=== PATIENT | female | born 1935 | race Caucasian/White ===

== ENCOUNTER 2023-07-14 22:34 | Inpatient (IN) | payer MEDICARE, OTHER, SELFPAY ==
[2023-07-14] VITALS (15 sets, daily range): BP systolic 84–143; BP diastolic 41–65; BMI 24.6
[2023-07-14 19:44] LABS: Glucose - Point of Care 130 mg/dl (70-99)
--- NOTE | 2023-07-14 19:56 | ED.CVA ---
History of Present Illness
General
Chief Complaint: CVA/TIA Symptoms
Source: patient
Exam Limitations: none
Time Seen by Provider: 07/14/23 19:51
Nursing documentation reviewed up to this point in time: agreed with
Onset of Stroke Symptoms
Onset of symptoms known: Yes
Date of onset of symptoms: 07/14/23
Time of onset of symptoms: 18:30
Time pt last seen normal is known: Yes
Date last time pt seen normal: 07/14/23
Time last time pt seen normal: 17:00
Travel History
Have you had any contact with someone who has COVID-19?: No
Do you have any symptoms of coronavirus? Fever > 100 degrees, chills, cough, shortness of breath, sore throat, loss of taste or smell, muscle aches, or headache?: No
History of Present Illness
History of Present Illness:
88-year-old female presents emergency department due to difficulty speaking at 6:30 PM tonight. states she took a nap at 5 PM, when she woke up at 630 she was having difficulty speaking.
Past History
Past History
ED Past Medical History: Hypothyroidism and Other (Hypertension, hypothyroidism, cirrhosis, hep C.)
ED Past Surgical History: Gynecological
Social History
Tobacco: Non-smoker
Alcohol: None
Drug: None
Personal:
Family History
Family History: CAD
Review of Systems
Review of Systems
Allergies reviewed?: Yes
All Other Systems: Not applicable
Constitutional: Reports no symptoms
EENT: Reports no symptoms
Respiratory: Reports no symptoms
Cardiac: Reports no symptoms
ABD/GI: Reports no symptoms
: Reports no symptoms
Musculoskeletal: Reports no symptoms
Skin: Reports no symptoms
Neurological: Reports other (difficulty speaking)
Endocrine: Reports no symptoms
Hematologic/Lymphatic: Reports no symptoms
Psychiatric: Reports no symptoms
Phy Exam
Physical Exam
Physical Exam:
Physical Exam
General: Hypotensive, 84/65
Neck: supple. no meningeal signs. normal posterior pharynx
Heart: s1/s2 regular rate and rhythm, no murmur. equal radial
pulses.
HEENT: Pupils equal round reactive to light, EOMI
Lungs: no acute respiratory distress. clear bilaterally
Abdomen: normal bowel sounds. not tender. no CVAT, rectal exam: guaiac positive brown stool
Neuro: alert and oriented to person. no focal neurological deficits cranial nerves II through XII intact
Skin: no rash
Psychiatric: well kept. interactive and cooperative
Extremities: no edema. no calf tenderness. negative homans. good distal pulses
Scores
NIH Stroke Score
Level of Consciousness: 0 - Alert
LOC Questions: 1-Answers one correctly
LOC Commands: 0-Performs both correctly
Best Horizontal Gaze: 0-Normal
Visual [place]: 0=Normal, no visual loss
Facial Palsy: 0=Normal, symmetrical
Motor - Right Arm: 0=No drift 10 seconds
Motor - Left Arm: 0=No drift 10 seconds
Motor - Right Le-No drift 5 seconds
Motor - Left Le-No drift 5 seconds
Limb Ataxia: 0-Absent
Sensation: 0-Normal
Best Language: 0-No aphasia
Dysarthria: 0-Normal
Extinction and Inattention: 0-No abnormality
Total Score:: 1
Course
Orders/Labs/Results
Orders:
Orders
07/14/23 19:45
EKG [Electrocardiogram (*1)] Urgent
Reason for Study: Tachycardia
07/14/23 19:46
EKG- Treatment ONCE
07/14/23 19:50
CT Head W/o Cont STROKE ALERT Urgent
Comment:
Reason For Exam: CVA symptoms
07/14/23 19:54
Complete Blood Count/With Diff Urgent
Comprehensive Metabolic Panel Urgent
PTT Urgent
Prothrombin Time Urgent
Troponin I Urgent
07/14/23 19:57
Straight cath- Treatment ONCE
07/14/23 20:11
Urinalysis Reflex To Culture Urgent
Date Specimen was Collected: 07/14/23
Time Specimen was Collected: 19:47
Urine Microscopic Reflex Cult Urgent
Urine Culture Urgent
NAYA Source: U
Specimen Description:
Date Specimen was Collected: 07/14/23
Time Specimen was Collected: 19:47
07/14/23 20:41
Femur, Left 2 View [CR Femur - Left Min 2 Vw] Urgent
Comment:
Reason For Exam: left hip/thigh pain, fall today
Hip, Left 2-3 Views [CR Hip - LT w/wo Pel 2-3 Vw*] Urgent
Comment:
Reason For Exam: left hip/thigh pain, fall today
Include a pelvis x-ray?: Yes
07/14/23 20:46
Type+Screen Urgent
07/14/23 22:00
Urine Culture Urgent
NAYA Source: Urine
Specimen Description:
0.9% Sodium Chloride 1000 ml [Nss] 1,000 ml IV 80 mls/hr
07/14/23 22:04
CefTRIAXone [Rocephin] 1,000 mg IV NOW STA
Sterile Water [Sterile Water For Injection] 10 ml IV NOW STA
07/14/23 22:05
Admit/Transfer Patient As Directed
Co-Sign Provider:
Level of Care: Inpatient admission
Assign to:: Medical/Surgical
Physician / Group: vinnie au
Diagnosis: anemia heme +stool,doug/ckd dehydration, hypotension
Reason for Hospitalization: anemia heme +stool,doug/ckd dehydration, hypotension
Expected length of stay greater than two midnights?: Yes
ELOS- Estimated Length of Stay in days: 3
I certify the patient meets the requirements for IP care: Yes
07/14/23 22:07
Code Status As Directed
Resuscitation Status: Do not resuscitate
Reached after discussion with pt or family/Healthcare POA: Yes
Based on pt advanced directive or healthcare POA form: Yes
Decision communicated with: per devang
07/14/23 22:08
DNR Bracelet Application ONCE
07/14/23 22:37
COVID-19 Antigen Urgent
Source: Nasal Swab
07/14/23 23:00
Flush (0.9% Sodium Chloride) [Flush (Nss)] See Dose Instructions IV PER PROTOCOL
07/15/23 08:00
0.9% Sodium Chloride [Nss (Preservative Free)] 10 ml IV BID
Pantoprazole [Protonix IV] 40 mg IV BID
Pantoprazole [Protonix IV] 40 mg IV DAILY
Abnormal Lab Results
07/14/23 07/14/23 07/14/23
19:41 19:54 20:11
RBC 2.26 L 10^6/uL
(4.20-5.40)
Hgb 7.6 L g/dL
(12.0-16.0)
Hct 22.0 L %
(37.0-47.0)
MCH 33.6 H pg
(27.0-31.0)
RDW 16.4 H %
(11.5-14.5)
Plt Count 40 L 10^3/uL
(130-400)
Absolute Lymphs (auto) 0.7 L 10^3/uL
(1.2-3.4)
Immature Gran % 0.7 H %
(0-0.5)
Lymphocytes % 12.7 L %
(20.5-51.1)
Monocytes % 9.8 H %
(1.7-9.3)
PT 16.5 H Sec
(11.4-14.6)
APTT 64.7 H Sec
(23.4-35.0)
Sodium 130 L mmol/L
(135-145)
BUN 28 H mg/dl
(7-17)
Creatinine 1.5 H mg/dL
(0.6-1.0)
Glucose 112 H mg/dl
(70-99)
Total Protein 5.8 L g/dl
(6.3-8.2)
Albumin 2.7 L g/dl
(3.5-5.0)
Urine Bilirubin 1+ A
(Negative)
Urine Urobilinogen 3+ A
(Neg - 1+)
Leukocyte Esterase Rfl 1+ A
(Negative)
Urine Bacteria (Reflex) Moderate A
(Negative)
POC Glucose 130 H mg/dl
(70-99)
07/14/23 19:54
07/14/23 19:54
Vital Signs
Initial and Last Documented VS:
Initial Vital Signs
Pulse Resp BP Pulse Ox
63 18 99/45 100
07/14/23 19:35 07/14/23 19:35 07/14/23 19:35 07/14/23 19:35
Last Documented Vital Signs
Pulse Resp BP Pulse Ox
73 25 143/55 99
07/14/23 23:45 07/14/23 23:45 07/14/23 23:00 07/14/23 23:45
MDM/Problems Addressed
Differential Diagnosis Includes:
GI bleed, hyponatremia, CVA, UTI, intracranial hemorrhage, left hip fracture
MDM/Problems Addressed:
88-year-old female with anemia, guaiac positive stool, episodic altered mental status, thrombocytopenia, left hip contusion, fall, hyponatremia-mild, acute kidney injury, anemia. Stroke alert called initially, do not suspect CVA, suspect
hypotension was cause of patient's incoherent speech. At this time patient is not a candidate for TNK based on resolution of symptoms, thrombocytopenia and anemia, GI bleed.
Chronic conditions affecting care: Neurological disorder (Prior encephalitis) and Other (Cirrhosis, hepatitis C)
Acute Exacerbation and/or Progression of Chronic Illness: Neurological disorder (Prior encephalitis and dementia)
*Radiology
Radiology exam reviewed: preliminary read by ED provider (Left hip and femur x-ray no signs of fracture) and radiology read reviewed (CT head no acute findings)
*Pulse Oximetry
Patient hypoxic: no
*EKG
Interpreted by ED Provider?: Yes
EKG Intrepretation Date: 07/14/23
EKG Intrepretation Time: 19:48
Interpretation: normal
Comparison EKG: no comparison EKG present
Heart Rate: 68
Rate: normal
Rhythm: sinus
[place]: normal axis
Interval: normal interval
QRS Pattern: normal QRS
Ischemia: no ischemia
*Wafer Substrate Tester Interpretation
Rate: normal
Interpretation: normal
Heart Rate: 67
Rhythm: sinus
*Critical Care Note
Total Time (30-74mins, 75-104mins- exclusive of procedures): Not Applicable
Data Reviewed
Review of Other/Old Records Reveals: Discharge Summary (Recent discharge 06/06/2023 for right leg cellulitis, dementia, toxic metabolic encephalopathy, sepsis, acute on chronic transaminitis, acute on chronic hyponatremia)
Source: records
Patient Management
Social determinants of health affecting care: Living situation and Strong social support
Discussion with other providers: Hospitalist
Escalation/DeEscalation of care consider admission/obs:
Admit indicated
ED Attending Note
-
Portions of this chart may have been created with voice recognition software.� Occasional wrong word or��sound alike� substitutions may have occurred due to the inherent limitations of voice recognition software.
Discharge Plan
Departure
Patient Disposition: Admit
Date of Disposition: 07/14/23
Time of Disposition: 21:17
Admit to: IMU
Presentation/result/management discussed w/ accepting MD/DO: Hospitalist
Patient with high blood pressure during this ER visit?: No
Condition: Fair
Discharge Problem:
Acute alteration in mental status, Hyponatremia, Acute hypotension, GI bleed, Acute renal failure, Anemia, Fall, Contusion of left hip and thigh
Interventions
Interventions:
*Risk Screen - Suicide Last Done: 07/14/23 19:48
*General Assessment Last Done: 07/14/23 19:35
*Neglect/Abuse Screening Last Done: 07/14/23 19:35
ED- Fall Risk Assessment Last Done: 07/14/23 19:49
*ED COVID-19 Vaccine History Last Done: 07/14/23 19:48
*Nursing Disposition Last Done: 07/14/23 23:58
ED- Pulmonary Assessment Last Done: 07/14/23 20:05
ED- Neurological Assessment Last Done: 07/14/23 20:05
ED- Cardiac Assessment Last Done: 07/14/23 20:05
Discharge Date and Time
Discharge Date/Time: 07/14/23 23:59
[2023-07-14 20:03] LABS: % Basophils 0.6 % (0-2); % Eosinophils 1.5 % (0-6); % Immature Granulocytes 0.7 % (0-0.5); % Lymphocytes 12.7 % (20.5-51.1); % Monocytes 9.8 % (1.7-9.3); % Neutrophils 74.7 % (42.2-75.2); Absolute Eosinophils 0.1 10^3/uL (0-0.7); Absolute Lymphocytes 0.7 10^3/uL (1.2-3.4); Absolute Monocytes 0.5 10^3/uL (0.1-0.6); Absolute Neutrophils 4.1 10^3/uL (1.4-6.5); Hemoglobin 7.6 g/dL (12.0-16.0); Mean Corp Hgb Conc. 34.5 g/dL (33.0-37.0); Mean Corpuscular Hgb 33.6 pg (27.0-31.0); Mean Corpuscular Volume 97.3 fL (81.0-99.0); Mean Platelet Volume 9.8 fL (7.4-10.4); Nucleated Red Blood Cells % 0 %; Platelet Count 40 10^3/uL (130-400); Red Blood Cell Count 2.26 10^6/uL (4.20-5.40); Red Cell Dist. Width 16.4 % (11.5-14.5); White Blood Cell Count 5.4 10^3/uL (4.8-10.8)
[2023-07-14 20:10] LABS: INR 1.33; PT 16.5 Sec (11.4-14.6)
[2023-07-14 20:12] LABS: APTT 64.7 Sec (23.4-35.0)
[2023-07-14 20:20] LABS: ALT (SGPT) 18 U/L (0-35); AST (SGOT) 36 U/L (14-36); Albumin 2.7 g/dl (3.5-5.0); Alkaline Phosphatase 95 U/L (38-126); Blood Urea Nitrogen 28 mg/dl (7-17); Calcium 8.6 mg/dl (8.4-10.2); Carbon Dioxide 25 mmol/L (22-30); Chloride 99 mmol/L (98-107); Estimated Creatinine Clearance 21 ml/min; Glucose 112 mg/dl (70-99); Potassium 4.7 mmol/L (3.5-5.1); Sodium 130 mmol/L (135-145); Total Protein 5.8 g/dl (6.3-8.2); eGFR 33.73
[2023-07-14 20:23] LABS: Troponin I < 0.012 ng/ml
[2023-07-14 20:30] LABS: Urine Albumin Trace (Neg - Trace); Urine Bilirubin 1+ (Negative); Urine Character Clear (Clear); Urine Color Yellow; Urine Glucose Negative (Negative); Urine Ketone Negative (Negative); Urine Leukocyte 1+ (Negative); Urine Nitrite Negative (Negative); Urine Occult Blood Negative (Negative); Urine Specific Gravity 1.015 (<1.030); Urine Urobilinogen 3+ (Neg - 1+)
[2023-07-14 20:37] LABS: Urine Bacteria Moderate (Negative); Urine Red Blood Cell None Seen /HPF (0-2); Urine Squamous Cell >30 /LPF (Few)
--- NOTE | 2023-07-14 21:38 | HPS.HSE ---
Addendum entered and electronically signed by Mitchel Silveira MD 07/14/23 22:38:
Patient seen and examined independently with MENTAL HEALTH SPECIALIST.� 88-year-old female past medical history of moderate dementia, cirrhosis secondary to hepatitis C, essential tremor, chronic hyponatremia, hypothyroidism, hypertension, GERD, osteoporosis, B12
deficiency, iron deficiency anemia, history of zoster encephalitis in 2018, presenting with difficulty speaking at 6:30 PM tonight and weakness.� No other symptoms of infection such as fever or chills, GI symptoms, urinary symptoms or pulmonary
symptoms.� Initial blood pressure of 99/45 which improved with IV fluids.� Patient did have a fall today with injury and bruising of her left hip.
Labs show chronic hyponatremia 130, acute kidney injury with creatinine 1.5, acute on chronic anemia with hemoglobin 7.6 from 9.5 and stable thrombocytopenia.� Physical exam did not show any focal neurological deficits. Rectal exam showed brown
stool that was Hemoccult positive.� Urinalysis showed +1 leukocyte esterase, 6-10 WBC, moderate bacteria.�
Mental status change likely metabolic encephalopathy possibly from UTI.� Blood pressure improved on IV fluids.� Hold lisinopril/amlodipine.� Check COVID. Start ceftriaxone.� Await urine culture.� IV fluids for KELLEI. Likely GI bleed with worsening
hemoglobin from 10.4 to 7.6 in the span of a month.� NPO.� Start Protonix 40 IV twice daily.� GI consulted.� CT head shows no acute abnormality.� Hip x-rays pending.�
Original Note:
Family Physician
-
Family Physician: Walker Stanley
Chief Complaint
-
Increased confusion today decreased oral intake
History of Present Illness
88-year-old female complaining of difficulty speaking when she woke up from a nap at 5 PM she noticed at 630 she was having difficulty speaking. Her Maame who is at bedside who states she normally has short-term memory problems although was
worse today. He states she has had decreased oral intake and is only voided twice a day. Her Maame denies any recent fever, chills, chest pain, palpitations, dizziness, headache, shortness breath, cough, abdominal pain, nausea, vomiting,
diarrhea, urinary symptoms. She has past medical history of hypertension, hypothyroidism, HLD, cirrhosis, chronic transaminitis hep C, GERD, zoster encephalitis 2017, moderate dementia chronic hyponatremia, recent right leg cellulitis with sepsis
06/02 - 06/06/2023, anemia, thrombocytopenia, B12 deficiency, iron deficiency anemia, osteoporosis
Medical History
Past Medical History
Past Medical History: Reports Other
Additional Past Medical History:
dementia moderate
hypertension
hypothyroidism
cirrhosis/hep C
HLD
GERD
osteoporosis
B12 deficiency
iron deficiency anemia
history zoster encephalitis 2017
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
Social History
Tobacco: Non-smoker
Alcohol: None
Drug: None
Personal:
Living: With Family ( Maame)
Employment: Retired
Family History
Family History: Early CAD (Brother late 40s [place]) and Other (Father [place] age 80s, 1 sister and other brother [place], mother several years after CVA)
Allergies / Home Medications
Allergies reflects when Allergies were last updated in [employer].
Home Medications with original date entered in [employer]
Allergy/Medication List:
Allergies
Allergy/AdvReac Type Severity Reaction Status Date / Time
No Known Allergies Allergy Verified 06/02/23 08:43
Home Medications
levothyroxine 75 mcg tablet (Synthroid) 75 mcg PO DAILY@07 Thyroid 08/15/08
lisinopril 40 mg tablet 40 mg PO HS blood pressure 08/15/08
amlodipine 2.5 mg tablet 2.5 mg PO DAILY@2000 blood pressure 06/02/23
cyanocobalamin (vitamin B-12) 500 mcg tablet 500 mcg PO DAILY Supplement 06/02/23
folic acid 1 mg tablet 1 mg PO DAILY Supplement 06/02/23
memantine 10 mg tablet 10 mg PO BID Neurological Condition 06/02/23
prednisolone acetate (PF) 1 % eye drops,suspension 1 drp LEFT EYE DAILY Eye Condition 06/02/23
rivastigmine 4.6 mg/24 hour transdermal patch 1 patch transdermal DAILY@1900 Neurological Condition 06/02/23
Review of Systems
-
History Source: Patient and Family ( Maame)
Constitutional: Reports Fatigue; Denies Chills
EENT: Reports Other (Decreased oral intake); Denies Sore Throat or Runny Nose
Respiratory: Denies Cough or Trouble Breathing
Cardiac: Denies Chest Pain, Palpitations or Syncope
Abdomen/GI: Denies Abdominal Pain, Nausea, Vomiting, Diarrhea, Constipated, Bloody Stools or Black Stools
: Denies Dysuria, Frequency, Flank Pain, Incontinence, Difficulty Voiding or Urgency
Musculoskeletal: Reports Edema (Chronic bilateral +1 to thighs); Denies Joint Pain
Skin: Denies Itching or Rash
Neurological: Reports Weakness; Denies Dizzy or Headache
Endocrine: Reports No Symptoms
Hematologic/Lymphatic: Reports No Symptoms
Psych: Reports Calm
Physical Exam
Vital Signs
Vital Signs
Pulse Resp BP Pulse Ox
67 18 121/55 100
07/14/23 21:15 07/14/23 21:15 07/14/23 21:12 07/14/23 21:15
Physical Exam
General: Comfortable, Conversant and Other (Chronic dementia slightly more confused jabbering certain words per although is oriented to name and 's name Maame at bedside); No Pain, Fever or Chills
HEENT: NormoCephalic, Anicteric, Moist mucous membranes, PERRLA, [place] Conjunctivae and No Ptosis
Respiratory: Clear; No Wheezes, Rales or Rhonchi
Cardiac: S1/S2, Regular Rhythm and Peripheral Edema (+1 bilateral legs to just above thighs); No Murmur, Rub or Gallop
Breast: Deferred by me
GI: Soft, Non Tender, Non Distended, Normal Bowel Sounds and No Hepatosplenomegaly
Rectal: Deferred by Provider
Genito-urinary: Deferred by me
Musculoskeletal: No Clubbing, No Cyanosis, Edema, Left Lower Extremity (+1 leg to thigh) and Edema, Right Lower Extremity (+1 leg to thighs with resolving cellulitis only slight erythema no active cellulitic infection); No Edema, Left Upper
Extremity or Edema, Right Upper Extremity
Skin: Warm and Dry; No Rash
Neuro: Awake, Alert, Oriented (To name and 's name Maame HADLEY) and No Sensory Deficits; No Slurred Speech, Facial Droop, Tremors or Sedated
Psych: Calm
Laboratory Results
-
07/14/23 19:54
07/14/23 19:54
Laboratory Results
PT 16.5 Sec (11.4-14.6) H 07/14/23 19:54
INR 1.33 07/14/23 19:54
APTT 64.7 Sec (23.4-35.0) H 07/14/23 19:54
Total Bilirubin 1.0 mg/dl (0.2-1.3) 07/14/23 19:54
AST 36 U/L (14-36) 07/14/23 19:54
ALT 18 U/L (0-35) 07/14/23 19:54
Alkaline Phosphatase 95 U/L (38-126) 07/14/23 19:54
Troponin I < 0.012 ng/ml 07/14/23 19:54
Data Reviewed
-
Lab Data: Labs Reviewed by me
Impression/Plan
-
Impression/plan:
Admit to MedSurg
#Hypotension 2/2 volume depletion/HTN�benign
98/52 > 121/55
-HOLD amlodipine, lisinopril
-Check orthostatics
-Check COVID swab
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
Creat 1.5 creat 0.9 on 06/06/2023
-Follow BMP
- Iv Nss 80 cc/hr X 1 liter
#Anemia of chronic disease
#Hx iron deficiency anemia, B12 deficiency
Hgb 7.6 <9.5 on 06/06/2023
-Continue B12 supplement
-Was evaluated by by heme maintain Hgb greater than 7 and plt greater than 20
-Iron studies May were normal with no indication of IV iron at that time
-+ Positive brown stool in ER
-Follow CBC
-Type and screen transfuse if Hgb less than 7
-Protonix 40 mg daily
-Regular diet
#Pyuria concern for possible UTI
-Will give 1 dose IV Rocephin follow urine culture
#Acute on chronic thrombocytopenia May 2023
Treated with transfusion of platelets PLT was 19> 48 on discharge
-Plt currently 40
-follow cbc
#Right leg cellulitis with sepsis 06/02 - 06/06/2023-Treated with IV Ancef
#Chronic venous stasis dermatitis
- resolved
#Dementia�moderate without behavioral disturbance 2017
#Chronic shuffling gait/chronic hand tremors essential
Patient on Exelon patch 4.6 mg takes at 7 PM nightly
-Continue memantine 10 mg daily
-Follows with Dr. Leahy neurology
#Chronic hyponatremia
NA 130 appears baseline for patient
#Hypothyroidism
-Continue Synthroid
#Chronic transaminitis
#History of cirrhosis liver question hep C possible blood transfusion in the past
-Follow CMP
Other PMH:
Osteoporosis
History zosters encephalitis Dx 2017
DNR PEr MAAME her
[2023-07-14] MEDS: NSS 1000 IV (22:20)
[2023-07-14] MEDS: STERILE WATER FOR INJECTION 10 ML IV (22:20)
[2023-07-14] MEDS: ROCEPHIN 1000 MG IV (22:20)
[2023-07-14 22:59] LABS: COVID-19 Antigen Negative (Negative)
[2023-07-15] VITALS (10 sets, daily range): BP systolic 94–138; BP diastolic 44–64; BMI 23.1
--- NOTE | 2023-07-15 00:54 | PTCARENOTE ---
Received pt from ED @ 0010. Pt confused, oriented to self only. VSS. Oriented to room, call zhang and plan of care. Bed alarm in place.
[2023-07-15] MEDS: SYNTHROID 75 MCG PO (06:05)
[2023-07-15 08:20] LABS: % Basophils 0.9 % (0-2); % Eosinophils 1.2 % (0-6); % Immature Granulocytes 0.6 % (0-0.5); % Lymphocytes 13.7 % (20.5-51.1); % Monocytes 7.4 % (1.7-9.3); % Neutrophils 76.2 % (42.2-75.2); Absolute Lymphocytes 0.5 10^3/uL (1.2-3.4); Absolute Monocytes 0.3 10^3/uL (0.1-0.6); Absolute Neutrophils 2.6 10^3/uL (1.4-6.5); Mean Corp Hgb Conc. 34.5 g/dL (33.0-37.0); Mean Corpuscular Hgb 33.7 pg (27.0-31.0); Mean Corpuscular Volume 97.6 fL (81.0-99.0); Mean Platelet Volume 9.5 fL (7.4-10.4); Nucleated Red Blood Cells % 0 %; Red Blood Cell Count 2.05 10^6/uL (4.20-5.40); Red Cell Dist. Width 16.4 % (11.5-14.5); White Blood Cell Count 3.4 10^3/uL (4.8-10.8)
[2023-07-15 08:24] LABS: Hemoglobin 6.9 g/dL (12.0-16.0); Platelet Count 27 10^3/uL (130-400)
[2023-07-15 08:57] LABS: ALT (SGPT) 22 U/L (0-35); AST (SGOT) 40 U/L (14-36); Albumin 2.8 g/dl (3.5-5.0); Alkaline Phosphatase 108 U/L (38-126); Blood Urea Nitrogen 26 mg/dl (7-17); Calcium 8.2 mg/dl (8.4-10.2); Carbon Dioxide 25 mmol/L (22-30); Chloride 104 mmol/L (98-107); Estimated Creatinine Clearance 30 ml/min; Glucose 86 mg/dl (70-99); Sodium 130 mmol/L (135-145); Total Bilirubin 0.7 mg/dl (0.2-1.3); Total Protein 5.9 g/dl (6.3-8.2); eGFR 48.94
[2023-07-15] MEDS: NSS (PRESERVATIVE FREE) 10 ML IV ×2 (08:58→19:29)
[2023-07-15] MEDS: PRED FORTE 1% EYE DROPS 1 DROP LEFT EYE (08:58)
[2023-07-15] MEDS: VITAMIN B-12 500 MCG PO (08:59)
[2023-07-15] MEDS: PROTONIX IV 40 MG IV ×2 (08:59→19:30)
[2023-07-15] MEDS: FOLVITE 1 MG PO (09:00)
[2023-07-15] MEDS: NAMENDA 5 MG PO ×2 (09:00→19:28)
--- NOTE | 2023-07-15 09:21 | W.PN.HOSP.TC ---
Today's Communication/Plan
-
see bold
Assessment / Plan
Assessment / Plan
Gen: NAD, Awake and alert
Eyes: EOMI, PERRLA, no scleral icterus.
Neck: supple.
CV: RRR, +S1/S2, no m/r/g.
Resp: CTAB, no rales, wheezes, or rhonchi.
Abd: +BS, soft, NT, ND
Skin: intact
Neuro: CN 2-12 intact, non-focal.
Psych: Normal mood and affect.
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
-h/o essential HTN
-COVID NEG
-Home amlodipine/lisinopril on hold
-orthostatic VS ordered but not done
-cont IVFs
Acute blood loss anemia on anemia of chronic disease:
-heme POS stool on admission
-h/o iron deficiency anemia, B12 deficiency
-transfuse 1U pRBCs
-Continue B12 supplement
-cont PPI
-GI and heme to see
Pyuria:
-one dose Rocephin was given on admission
-Follow urine culture
Pancytopenia:
-transfuse 1U plts and 1U pRBCs
-Heme to see
Other problems:
Chronic venous stasis dermatitis
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
Chronic shuffling gait/chronic essential hand tremors
Chronic hyponatremia, trend
Hypothyroidism: Continue Synthroid
Chronic transaminitis
h/o cirrhosis
DNR/SCDs
Anticipated Discharge: 24 - 48 hours
Subjective/Interval History
-
Date of Service: July 15, 2023
Patient denies chest pain, SOB, abd pain.
Objective Data
-
Labs:
Laboratory Results
07/15/23
07:42
WBC 3.4 L
Hgb 6.9 L*
Hct 20.0 L*
Plt Count 27 L* D
Sodium 130 L
Potassium 5.0
Chloride 104
Carbon Dioxide 25
BUN 26 H
Creatinine 1.1 H
Glucose 86
Calcium 8.2 L
Total Bilirubin 0.7
AST 40 H
ALT 22
Alkaline Phosphatase 108
Vital Signs:
Vital Signs
Temp Pulse Resp BP Pulse Ox
98.5 F 74 16 94/54 100
07/15/23 00:10 07/15/23 00:10 07/15/23 00:10 07/15/23 00:10 07/15/23 00:10
I&O
07/14/23 07/15/23 07/16/23
06:59 06:59 06:59
Output Total 300 / 300
Balance -300 / -300
--- NOTE | 2023-07-15 09:27 | CON.ONC ---
Addendum entered and electronically signed by Solomon Ramirez MD 07/15/23 15:14:
Hematology Addendum:
Patient seen and evaluated - agree w/ [employer]ER note and plan as outlined
-acute/ chronic pancytopenia in the setting of hepatitis C/ advanced cirrhosis
-followed by Dr. Jean as an outpt previously
-w/ liquid biopsy - Neotype MDS/CMML - genetic panel in 2020 w/o mutations to suggest MDS or clonal myeloid process
-agree w/ transfusion of PRBCs and plts
-follow CBC and transfuse prn
will continue to follow with you
Original Note:
Impression
Impression
Acute change in mental status
Dementia
Pancytopenia
Anemia of chronic disease
Hypotension
Chronic venous stasis
Chronic hyponatremia
Hx cirrhosis, Hep C
Plan
Plan
07/15 Hgb 6.9, PLT 27
Transfuse as needed to maintain Hgb >7, PLT >20
1unit PRBCs, 1unit platelets ordered
CBC w/ diff daily
Additional lab studies ordered and pending
GI consult
Supportive care
Falls precautions
We will follow.
Patient History
History of Present Illness
Ghislaine Siegel is an 88 year old female known to Dr. Jean with [facility] for history of anemia. She has not been seen in the office since 2020. Her medical records note iron deficiency, B12 deficiency, and history of pancytopenia. She received
iron infusions in Feb 2021. She presented to the ER 07/14 with difficulty speaking and decreased oral intake per . She was recently admitted last month 06/02-06/06/23 for change in mental status, slurred speech, and acute cellulitis.
Past-Medical/Surgical History
Hx Cirrhosis
Chronic transaminitis
Hx Hep C
Hypertension
Hypothyroidism
Iron deficiency
B12 deficiency
Acute on chronic anemia
GERD
Zoster encephalitis 2017
moderate dDchronic hyponatremia
Recent LE cellulitis w/ sepsis 06/02 - 06/06/2023
Osteoporosis
Patient Medication
Medication Instructions Recorded Confirmed Last Taken Type
levothyroxine 75 mcg tablet 75 mcg PO DAILY@07 Thyroid 08/15/08 07/14/23 07/14/23 History
(Synthroid)
lisinopril 40 mg tablet 40 mg PO HS blood pressure 08/15/08 07/14/23 07/13/23 History
amlodipine 2.5 mg tablet 2.5 mg PO DAILY@1999 blood pressure 06/02/23 07/14/23 07/13/23 History
cyanocobalamin (vitamin B-12) 500 500 mcg PO DAILY Supplement 06/02/23 07/14/23 07/14/23 History
mcg tablet
folic acid 1 mg tablet 1 mg PO DAILY Supplement 06/02/23 07/14/23 07/14/23 History
memantine 10 mg tablet 10 mg PO BID Neurological Condition 06/02/23 07/14/23 07/14/23 History
prednisolone acetate (PF) 1 % eye 1 drp LEFT EYE DAILY Eye Condition 06/02/23 07/14/23 07/14/23 History
drops,suspension
rivastigmine 4.6 mg/24 hour 1 patch transdermal DAILY@1900 06/02/23 07/14/23 06/02/23 History
transdermal patch Neurological Condition
Active Medications
Generic Name Dose Route Start Last Admin
Trade Name Freq PRN Reason Stop Dose Admin
Ceftriaxone Sodium 1,000 mg 07/15/23 22:00
Ceftriaxone 1000 Mg / 10 Ml Vial IV
Q24H RAMON
Cyanocobalamin 500 mcg 07/15/23 08:00 07/15/23 08:59
Cyanocobalamin 1,000 Mcg Tablet PO 08/12/23 07:59 500 mcg
DAILY RAMON Administration
Folic Acid 1 mg 07/15/23 08:00 07/15/23 09:00
Folic Acid 1 Mg Tablet PO 08/12/23 07:59 1 mg
DAILY RAMON Administration
Sodium Chloride 1,000 mls @ 80 mls/hr 07/14/23 22:00 07/14/23 22:20
Nss IV 07/15/23 10:29 1,000 mls
.[id number] RAMON Administration
Levothyroxine Sodium 75 mcg 07/15/23 07:00 07/15/23 06:05
Levothyroxine 75 Mcg Tablet PO 08/12/23 06:59 75 mcg
DAILY@07 RAMON Administration
Memantine 5 mg 07/15/23 08:00 07/15/23 09:00
Memantine 10 Mg Tablet PO 08/12/23 07:59 5 mg
BID RAMON Administration
Pantoprazole Sodium 40 mg 07/15/23 08:00 07/15/23 08:59
Pantoprazole Sodium 40 Mg/10 Ml Vial IV 08/12/23 07:59 40 mg
BID RAMON Administration
Prednisolone Acetate 1 drop 07/15/23 08:00 07/15/23 08:58
Prednisolone 1% (Ophthalmic Suspension) Bottle LEFT EYE 08/12/23 07:59 1 drop
DAILY RAMON Administration
Rivastigmine 4.6 mg 07/15/23 19:00
Rivastigmine (Exelon) 4.6 Mg Patch TRANSDERM 08/12/23 18:59
DAILY@1900 RAMON
Sodium Chloride 0 flush 07/14/23 23:00
Sodium Chloride 0.9% (Flush) Syringe IV 08/11/23 22:59
PER PROTOCOL RAMON
Sodium Chloride 10 ml 07/15/23 08:00 07/15/23 08:58
Sodium Chloride 0.9% (Preservative Free) 10 Ml Vial IV 08/12/23 07:59 10 ml
BID RAMON Administration
Sterile Water 10 ml 07/15/23 22:00
Sterile Water For Injection 10 Ml Vial IV 08/12/23 21:59
Q24H RAMON
Review of Systems
-
Unable to obtain full review of systems at this time due to: Dementia and Acuity
History Source: Patient and Records
Physical Exam
-
patient is in bed, platelets transfusing. she is oriented to self only.
General: No Apparent Distress, Comfortable and Conversant
Cardiology: S1 and S2
Pulmonary: Clear and Other (diminished)
GI: Normal Bowel Sounds
Genito-Urinary: Deferred by me
Musculoskeletal: Edema, Right Lower Extrem (+2, pitting) and Edema, Left Lower Extrem (+2 pitting)
Extremities: Edema and Other (discoloration bilateral LEs)
Neurology: Other (+word finding, confused with conversation)
Skin: Warm, Dry and Other (scattered bruising)
Psych: Confused (aaox1 )
Labs
Lab Results
WBC 3.4 10^3/uL (4.8-10.8) L 07/15/23 07:42
RBC 2.05 10^6/uL (4.20-5.40) L 07/15/23 07:42
Hgb 6.9 g/dL (12.0-16.0) L* 07/15/23 07:42
Hct 20.0 % (37.0-47.0) L* 07/15/23 07:42
MCV 97.6 fL (81.0-99.0) 07/15/23 07:42
MCH 33.7 pg (27.0-31.0) H 07/15/23 07:42
MCHC 34.5 g/dL (33.0-37.0) 07/15/23 07:42
RDW 16.4 % (11.5-14.5) H 07/15/23 07:42
Plt Count 27 10^3/uL (130-400) L* D 07/15/23 07:42
MPV 9.5 fL (7.4-10.4) 07/15/23 07:42
Abs Immat Gran (auto) 0.0 10^3/uL (0-0.05) 07/15/23 07:42
Absolute Neuts (auto) 2.6 10^3/uL (1.4-6.5) 07/15/23 07:42
Absolute Lymphs (auto) 0.5 10^3/uL (1.2-3.4) L 07/15/23 07:42
Absolute Monos (auto) 0.3 10^3/uL (0.1-0.6) 07/15/23 07:42
Absolute Eos (auto) 0.0 10^3/uL (0-0.7) 07/15/23 07:42
Absolute Basos (auto) 0.0 10^3/uL (0-0.2) 07/15/23 07:42
Immature Gran % 0.6 % (0-0.5) H 07/15/23 07:42
Neutrophils % 76.2 % (42.2-75.2) H 07/15/23 07:42
Lymphocytes % 13.7 % (20.5-51.1) L 07/15/23 07:42
Monocytes % 7.4 % (1.7-9.3) 07/15/23 07:42
Eosinophils % 1.2 % (0-6) 07/15/23 07:42
Basophils % 0.9 % (0-2) 07/15/23 07:42
Creatinine 1.1 mg/dL (0.6-1.0) H 07/15/23 07:42
Vital Signs
Vital Signs
Temp Pulse Resp BP Pulse Ox
98.5 F 74 16 94/54 100
07/15/23 00:10 07/15/23 00:10 07/15/23 00:10 07/15/23 00:10 07/15/23 00:10
07/[address]: No evidence of acute intracranial abnormality.
--- NOTE | 2023-07-15 10:15 | CON.GI ---
Addendum entered and electronically signed by Elysia Marin DO 07/15/23 16:10:
Seen examined independently of BENITO. I agree with her note with my additions below.
Jacque is an 88-year-old female with history of chronic thrombocytopenia, chronic iron deficiency, B12 deficiency who has been followed by hematology as an outpatient. She has mild dementia and memory impairment and has a history of herpes zoster
encephalitis, GERD, chronic hyponatremia who presented to the emergency room with increased confusion after sustaining a fall who had x-rays and a CT of the head which all showed no significant findings. GI was consulted because of brown heme
positive stool. Her hemoglobin on admission was 7.6, after IV fluids 6.9 and is currently getting a transfusion. In May her hemoglobin was in the nines. Her platelet count today was 27, white count 3.4, MCV 97, she has mildly elevated INR PT,
BUN is 26, creatinine is 1.1, sodium is 130, ALT 22, AST 40, alkaline phosphatase 108, ammonia 28, albumin 2.8, B12 669, folate 14.7, total bilirubin 0.7, iron 126, ferritin 68, percent saturation 38.
Throughout her chart it states that she has hep C cirrhosis however I can find no workup or evidence of this. It seems to be propagated note to note.
I tried to call her who did not answer. She is too demented to give me any answers. Abdominal ultrasound has been ordered.
Her hepatitis panel came back negative for hepatitis C. She appears to be immune to hepatitis a.
I reviewed [facility] outpatient notes from her PCP with no mention of hep C or cirrhosis. Her hematology notes outpatient mention HCV/Cirrhosis
Her U/S from 2018 shows concerns for cirrhosis.
Regardless: she has brown heme + stool in the setting of pancytopenia.
discussed with hematology
I have no reason for inpatient scopes looking for a cause of brown heme +stool with a plt count of 27.
This is a goals of care conversation to be had.
Would continue supportive care and reverse whatever is possible.
Her worsening confusion - CT head negative, ammonia normal. No significant ascites on exam to tap. urine culture pending.
Original Note:
Consultation
-
Date/Time Consultation Requested: 07/15/23 @ 00:16
Date/Time Consultation Performed: 07/15/23 @ 10:30
Requesting Provider: BENITO Quevedo
Performing Provider: BENITO Barcenas; Dr. Elysia Marin
Reason for Consultation: anemia, heme + brown stool
Medical History
Chief Complaint / HPI
Chief Complaint: increased confusion, decreased PO intake
History of Present Illness:
The patient is an 88-year-old female with a past medical history significant for chronic thrombocytopenia, chronic iron deficiency anemia, vitamin B12 deficiency, ? Cirrhosis secondary to hepatitis C, mild dementia/short-term memory impairment
secondary to history of herpes zoster encephalitis, GERD, hypothyroidism, hypertension, chronic hyponatremia, hyperlipidemia, who presented to the emergency room with increased confusion after sustaining a fall. We are being asked to evaluate for
her anemia. The patient is demented and confused, and therefore unable to provide much in regards to the history of present illness therefore the chart was utilized. I did also try to call her and did not reach him. Admitting records note
that the patient had increased confusion, difficulty speaking, and decreased p.o. intake at home per her . She also had sustained a fall without any reported significant injury aside from left hip pain. She has been followed by hematology
in the past for her anemia (per their note) but no recent follow-up. It is unclear if she has ever had a evaluation for hepatitis C/cirrhosis which was evident on ultrasound imaging in 2018, as I do not appreciate any GI workup in our outpatient
system. The patient denies any acute complaints and reports feeling well. It is noted that she does have some dysarthria with difficulty getting words out. She denies any pain. She denies any feelings of lethargy or fatigue. She is awake and
alert. She denies alcohol use. No endoscopy or colonoscopy reports available in our system. On admission she underwent a CT of the head which showed no evidence of acute intracranial abnormalities. She also underwent x-ray imaging of the left
femur and hip which showed no evidence of fracture or dislocation. Pertinent lab findings on admission include hemoglobin 7.6, platelets 40,000, INR 1.33, sodium 130, potassium 4.7, BUN 28, creatinine 1.5, total bilirubin 1.0, AST 36, ALT 18, alk
phos 95, troponin negative x 1. She was evaluated by hematology, noted with a drop of her platelets to 27,000 this morning and hemoglobin of 6.9. 1 unit of packed red blood cells and platelets were ordered and transfusing. She was started on IV
ceftriaxone for possible UTI with urine culture pending. She was made n.p.o. for concern for possible GI source of blood loss with her anemia and placed on twice daily PPI. Rectal exam did show brown but heme positive stool per ER physician
documentation. Per nursing the patient has had no bowel movement since admission with no other signs of bleeding.
Past Medical History
Past Medical History: HTN, Hypercholesterolemia, Hypothyroidism and Other (Chronic thrombocytopenia, chronic iron deficiency anemia, vitamin B12 deficiency, ? Cirrhosis secondary to hepatitis C, mild dementia, history of herpes zoster's
encephalitis, chronic hyponatremia)
Past Surgical History: Gynecological (Uterine surgery)
Social History
Tobacco: Non-Smoker
Alcohol: None
Drug: None
Personal:
Living: With Family
Family History
Family History: Unable to Obtain
Allergies / Home Medications
Allergy/AdvReac Type Severity Reaction Status Date / Time
No Known Allergies Allergy Verified 06/02/23 08:43
Medication Instructions Recorded
levothyroxine 75 mcg tablet 75 mcg PO DAILY@07 Thyroid 08/15/08
(Synthroid)
lisinopril 40 mg tablet 40 mg PO HS blood pressure 08/15/08
amlodipine 2.5 mg tablet 2.5 mg PO DAILY@2000 blood pressure 06/02/23
cyanocobalamin (vitamin B-12) 500 500 mcg PO DAILY Supplement 06/02/23
mcg tablet
folic acid 1 mg tablet 1 mg PO DAILY Supplement 06/02/23
memantine 10 mg tablet 10 mg PO BID Neurological Condition 06/02/23
prednisolone acetate (PF) 1 % eye 1 drp LEFT EYE DAILY Eye Condition 06/02/23
drops,suspension
rivastigmine 4.6 mg/24 hour 1 patch transdermal DAILY@1900 06/02/23
transdermal patch Neurological Condition
Review of Systems
-
Unable to obtain full review of systems at this time due to: Dementia
Vital Signs
Temp Pulse Resp BP Pulse Ox
98.0 F 94 18 119/58 100
07/15/23 09:59 07/15/23 09:59 07/15/23 09:59 07/15/23 09:59 07/15/23 08:28
Physical Exam
Exam
General: Other (Elderly appearing female in no significant distress )
HEENT: Normocephalic, Anicteric and Atraumatic
Respiratory: Clear
Cardiac: S1/S2 and Regular Rhythm
Breast: Deferred by me
GI: Soft, Non Tender, Normal Bowel Sounds and Distended (Round, minimally distended)
Skin: Warm and Dry
Neuro: Awake, Alert and Other (Confused, + dysarthria)
Psych: Calm
Results
WBC 3.4 10^3/uL (4.8-10.8) L 07/15/23 07:42
Hgb 6.9 g/dL (12.0-16.0) L* 07/15/23 07:42
Hct 20.0 % (37.0-47.0) L* 07/15/23 07:42
MCV 97.6 fL (81.0-99.0) 07/15/23 07:42
Plt Count 27 10^3/uL (130-400) L* D 07/15/23 07:42
Absolute Neuts (auto) 2.6 10^3/uL (1.4-6.5) 07/15/23 07:42
PT 16.5 Sec (11.4-14.6) H 07/14/23 19:54
INR 1.33 07/14/23 19:54
APTT 64.7 Sec (23.4-35.0) H 07/14/23 19:54
Sodium 130 mmol/L (135-145) L 07/15/23 07:42
Potassium 5.0 mmol/L (3.5-5.1) 07/15/23 07:42
Chloride 104 mmol/L (98-107) 07/15/23 07:42
Carbon Dioxide 25 mmol/L (22-30) 07/15/23 07:42
BUN 26 mg/dl (7-17) H 07/15/23 07:42
Creatinine 1.1 mg/dL (0.6-1.0) H 07/15/23 07:42
Calcium 8.2 mg/dl (8.4-10.2) L 07/15/23 07:42
Total Bilirubin 0.7 mg/dl (0.2-1.3) 07/15/23 07:42
AST 40 U/L (14-36) H 07/15/23 07:42
ALT 22 U/L (0-35) 07/15/23 07:42
Alkaline Phosphatase 108 U/L (38-126) 07/15/23 07:42
Diagnostic Image Results:
07/14/23 CT of the head with no acute intracranial abnormality
07/14/23 X-ray of the left femur/hip, negative for fracture or acute findings
Prior GI Procedures:
EGD: None on record
Colonoscopy: None on record
Assessment / Plan
-
The patient is an 88-year-old female with a past medical history significant for chronic thrombocytopenia, chronic iron deficiency anemia, vitamin B12 deficiency, ? Cirrhosis secondary to hepatitis C, mild dementia/short-term memory impairment
secondary to history of herpes zoster encephalitis, GERD, hypothyroidism, hypertension, chronic hyponatremia, hyperlipidemia, mild aortic and mitral valve stenosis, who presented to the emergency room with increased confusion after sustaining a
fall. We are being asked to evaluate for her anemia. Presentation as noted above with increased confusion, dysarthria, and fall. Recent admission for cellulitis in May. Questionable history of cirrhosis secondary to hepatitis C which was
seen on ultrasound imaging in 2018 but no outpatient workup seen for this seen in [facility]. With significant pancytopenia, hematology is following. Noted to have a brown heme positive stools with a hemoglobin of 7.6, dropped to 6.9 this morning.
Platelets severely low at 27,000. Transfusion initiated with platelets and packed red blood cells. Currently with no signs of active bleeding. She is awake but confused.
Problem list:
#1: Altered mental status
-CT of the head unrevealing. Encephalopathy possibly secondary to cirrhosis versus infectious etiology versus worsening dementia. She does have a history of short-term memory impairment after having herpes zoster's encephalitis in 2018.
-Ammonia level done which was normal. Prior imaging from 2018 suggesting cirrhosis but unclear as to further workup with no GI evaluation in our system outpatient.
-Will check an ultrasound of the abdomen to evaluate for ascites. Pending this can consider doing a diagnostic paracentesis to rule out SBP
-Urine culture pending, started on IV ceftriaxone for possible UTI
-Consider lactulose, will discuss with Dr. Marin
-Consider neurology evaluation pending above, defer to hospitalist
#2: Heme positive brown stool, normocytic anemia
-Possibly secondary to slow GI loss such as portal hypertensive gastropathy with history of reported cirrhosis versus peptic ulcer disease versus AVM versus other
-Also with history of chronic iron deficiency anemia and B12 deficiency
-Currently with no overt signs of GI bleeding
-Trend H&H and transfuse to keep hemoglobin greater than 7, hematology following
-Will discuss with the patient's regarding further work-up of this. Endoscopic evaluation would be higher risk given her age, comorbidities, and current medical state. Currently contraindicated with her platelet levels unless she has signs
of active GI bleeding. Called and left a message for him.
-Continue twice daily PPI
-N.p.o. for now pending above
-Add iron, ferritin, B12, folate levels to admitting labs
#3: Pancytopenia
-Likely multifactorial causes with chronic iron deficiency anemia versus underlying cirrhosis versus infection versus other
-Hematology following
-Monitor platelets and transfusion as per hematology
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
-Will discuss with the patient's regarding history of this and if she has ever had workup for this.
-Plan as above
-Will send hepatitis serologies
-Will need further outpatient liver workup
-Trend LFTs
Other acute medical problems:
-KELLIE
-acute/chronic hyponatremia
-fall
Other pertinent medical history:
-GERD
-Hypothyroidism
-Hypertension
-Dementia with short-term memory loss
-History of herpes zoster's encephalitis 2018
-Hyperlipidemia
-Mild aortic and mitral valve stenosis
-
-
Thank you for consultation and allowing me to participate in the patient's care. Please call the contractor general engineering GI physician during the after hours with any questions or concerns.
[2023-07-15 11:02] LABS: Ammonia 28 umol/L (9-30)
[2023-07-15 13:06] LABS: Iron 126 ug/dl (37-170)
[2023-07-15 13:08] LABS: Hepatitis B Surface Antigen Negative (Negative)
[2023-07-15 13:12] LABS: Hepatitis A IgM Antibody Negative (Negative)
[2023-07-15 13:13] LABS: LDH 205 U/L (120-246)
[2023-07-15 13:16] LABS: Percent Saturation 38 % (20-50); Total Iron Binding Capacity 325 ug/dl (265-497)
[2023-07-15 13:17] LABS: Reticulocyte Count 4.6 % (0.4-2.8)
[2023-07-15 13:26] LABS: Hepatitis B Core Ab, Total Negative (Negative); Hepatitis B Surface Antibody Negative; Hepatitis C Antibody Negative (Negative)
[2023-07-15 14:06] LABS: Ferritin 68.4 ng/ml (11.1-264.0)
[2023-07-15 14:37] LABS: Folate 14.7 ng/ml (2.76-20); Vitamin B12 669 pg/ml (239-931)
[2023-07-15 15:05] LABS: Hepatitis A Antibody, Total Positive (Negative)
--- NOTE | 2023-07-15 15:43 | CM ---
proposal manager writer reviewed patient's chart and met with patient and left message for patient's spouse. Patient lives with spouse in a in law suite in nephew's home, in law suite is one story with 2 steps to enter, patient needs some assistance from
spouse with adl's and uses a walker with ambulation. Patient has a prescription plan and uses [facility] pharmacy. Patient is current with [facility], [facility] liaison is aware that plan is to resume services at discharge.
PCP: Dr. Stanley
Plan; Home when stable with spouse and [facility].
--- NOTE | 2023-07-15 16:16 | VNURNOTE ---
Home health liaison called spouse to discuss resuming [facility] services. Message left on his voicemail explaining he will hear from the visiting nurse 1-2 days after being discharged from to set up visits.
[2023-07-15] MEDS: EXELON PATCH 4.59999999999999964 MG TRANSDERM (18:26)
[2023-07-15 19:24] LABS: Hematocrit 21.9 % (37.0-47.0); Hemoglobin 7.8 g/dL (12.0-16.0)
[2023-07-15] MEDS: MELATONIN 5 MG PO (22:08)
[2023-07-15] MEDS: ROCEPHIN 1000 MG IV (22:09)
[2023-07-15] MEDS: STERILE WATER FOR INJECTION 10 ML IV (22:09)
[2023-07-16] VITALS (11 sets, daily range): BP systolic 117–159; BP diastolic 58–93; BMI 23.4
[2023-07-16] MEDS: SYNTHROID 75 MCG PO (05:59)
[2023-07-16 06:04] LABS: % Basophils 0.5 % (0-2); % Eosinophils 1.1 % (0-6); % Immature Granulocytes 0.5 % (0-0.5); % Lymphocytes 14.3 % (20.5-51.1); % Monocytes 11.1 % (1.7-9.3); % Neutrophils 72.5 % (42.2-75.2); Absolute Lymphocytes 0.3 10^3/uL (1.2-3.4); Absolute Monocytes 0.2 10^3/uL (0.1-0.6); Absolute Neutrophils 1.4 10^3/uL (1.4-6.5); Hemoglobin 7.1 g/dL (12.0-16.0); Mean Corp Hgb Conc. 34.8 g/dL (33.0-37.0); Mean Corpuscular Volume 94.9 fL (81.0-99.0); Mean Platelet Volume 9.2 fL (7.4-10.4); Nucleated Red Blood Cells % 0 %; Red Blood Cell Count 2.15 10^6/uL (4.20-5.40); Red Cell Dist. Width 17.2 % (11.5-14.5)
[2023-07-16 06:17] LABS: Hematocrit 20.4 % (37.0-47.0); Platelet Count 18 10^3/uL (130-400); White Blood Cell Count 1.9 10^3/uL (4.8-10.8)
--- NOTE | 2023-07-16 06:34 | W.PN.UPDATE ---
Update Note
Progress Note Update
Patient's Plt down to 18 from 27. 1unit Plt ordered to keep plt >20.
[2023-07-16 06:41] LABS: ALT (SGPT) 19 U/L (0-35); AST (SGOT) 36 U/L (14-36); Albumin 2.4 g/dl (3.5-5.0); Alkaline Phosphatase 79 U/L (38-126); Blood Urea Nitrogen 24 mg/dl (7-17); Calcium 8.2 mg/dl (8.4-10.2); Carbon Dioxide 23 mmol/L (22-30); Chloride 104 mmol/L (98-107); Estimated Creatinine Clearance 33 ml/min; Glucose 77 mg/dl (70-99); Potassium 4.3 mmol/L (3.5-5.1); Sodium 132 mmol/L (135-145); Total Bilirubin 0.9 mg/dl (0.2-1.3); Total Protein 5.5 g/dl (6.3-8.2); eGFR 54.87
[2023-07-16] MEDS: NSS (PRESERVATIVE FREE) 10 ML IV ×2 (09:53→20:51)
[2023-07-16] MEDS: PROTONIX IV 40 MG IV ×2 (09:54→20:50)
[2023-07-16] MEDS: VITAMIN B-12 500 MCG PO (09:54)
[2023-07-16] MEDS: PRED FORTE 1% EYE DROPS 1 DROP LEFT EYE (09:54)
[2023-07-16] MEDS: FOLVITE 1 MG PO (09:54)
[2023-07-16] MEDS: NAMENDA 5 MG PO ×2 (09:54→20:50)
--- NOTE | 2023-07-16 10:25 | W.PN.GI.CBS2 ---
Today's Communication / Plan
-
nothing from GI; GI signing off, supportive care
Assessment / Plan
-
The patient is an 88-year-old female with a past medical history significant for chronic thrombocytopenia, chronic iron deficiency anemia, vitamin B12 deficiency, ? Cirrhosis secondary to hepatitis C, mild dementia/short-term memory impairment
secondary to history of herpes zoster encephalitis, GERD, hypothyroidism, hypertension, chronic hyponatremia, hyperlipidemia, mild aortic and mitral valve stenosis, who presented to the emergency room with increased confusion after sustaining a
fall. We are being asked to evaluate for her anemia. Presentation as noted above with increased confusion, dysarthria, and fall. Recent admission for cellulitis in May. Questionable history of cirrhosis? (negative HCV) which was seen on
ultrasound imaging in 2018 but no outpatient workup seen for this seen in [facility]. With significant pancytopenia, hematology is following. Noted to have a brown heme positive stools with a hemoglobin of 7.6, dropped to 6.9 this morning. Platelets
severely low at 27,000. Transfusion initiated with platelets and packed red blood cells. Currently with no signs of active bleeding. She is awake but confused.
Problem list:
# Altered mental status
-- seems to be improving; urine culture positive and pending - may have a reversible component to her AMS
-- her ammonia was normal
-CT of the head unrevealing. Encephalopathy possibly secondary to cirrhosis versus infectious etiology versus worsening dementia. She does have a history of short-term memory impairment after having herpes zoster's encephalitis in 2018.
-Ammonia level done which was normal. Prior imaging from 2018 suggesting cirrhosis but unclear as to further workup with no GI evaluation in our system outpatient.
-Will check an ultrasound of the abdomen to evaluate for ascites. Pending this can consider doing a diagnostic paracentesis to rule out SBP - pending read - doubt enough based on clinical exam
-Urine culture pending, started on IV ceftriaxone for possible UTI
#2: Heme positive brown stool, normocytic anemia/pancytopenia
-Possibly secondary to slow GI loss such as portal hypertensive gastropathy with history of reported cirrhosis versus peptic ulcer disease versus AVM versus other
-Also with history of chronic iron deficiency anemia and B12 deficiency
-Currently with no overt signs of GI bleeding
-Trend H&H and transfuse to keep hemoglobin greater than 7, hematology following
-- this is supportive care in the setting of pancytopenia and no overt bleeding with brown stool - her plts are 18
-Continue twice daily PPI
--ok for diet
-normal iron, ferritin, B12, folate levels
#3: Pancytopenia
-Likely multifactorial causes underlying cirrhosis? versus infection versus other
-Hematology following
-Monitor platelets and transfusion as per hematology
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
-- patient and are not aware of this and HCV AB is negative
-- only thing I can find in her history is an abnormal U/S in 2018 - no cirrhosis workup done
-- regardless, she is not a candidate for transplant and would be hospice appropriate
--- Will sign off, please call us if she has clinically significant bleeding; discussed with Dr. Urena; transfusions per hematology and primary team
Other acute medical problems:
-KELLIE
-acute/chronic hyponatremia
-fall
Other pertinent medical history:
-GERD
-Hypothyroidism
-Hypertension
-Dementia with short-term memory loss
-History of herpes zoster's encephalitis 2018
-Hyperlipidemia
-Mild aortic and mitral valve stenosis
Total Time Spent with Patient (in minutes): 35
Subjective
Subjective
Date of Service: July 16, 2023
Jacque is more coherent today. Denies bleeding. Received 1U blood and plts and has worsening pancytopenia
Objective
Data Reviewed
Laboratory Data:
Laboratory Results
07/16/23 05:25
07/16/23 05:25
Laboratory Results
PT 16.5 Sec (11.4-14.6) H 07/14/23 19:54
INR 1.33 02/22/24 19:54
APTT 64.7 Sec (23.4-35.0) H 07/14/23 19:54
Total Bilirubin 0.9 mg/dl (0.2-1.3) 07/16/23 05:25
AST 36 U/L (14-36) 07/16/23 05:25
ALT 19 U/L (0-35) 07/16/23 05:25
Alkaline Phosphatase 79 U/L (38-126) 07/16/23 05:25
Vital Signs and I&O:
Vital Signs
Temp Pulse Resp BP Pulse Ox
97.7 F 96 18 142/71 99
07/16/23 08:00 07/16/23 08:00 07/16/23 08:00 07/16/23 08:00 07/16/23 08:00
I&O
07/15/23 07/16/23 07/17/23
06:59 06:59 06:59
Intake Total 2029
Output Total 300 / 300
Balance -300 / -300 2029
Physical Exam
Physical Exam
HEENT: Anicteric
GI: Soft
Extremities: No Edema
Neuro: Other (more coherent today)
--- NOTE | 2023-07-16 11:16 | W.PN.HOSP.TC ---
Today's Communication/Plan
-
see bold
Assessment / Plan
Assessment / Plan
Gen: NAD, AAOx1, appears chronically ill
Eyes: EOMI, PERRLA, no scleral icterus.
Neck: supple.
CV: remains RRR, +S1/S2, no m/r/g.
Resp: remains CTAB, no rales, wheezes, or rhonchi.
Abd: remains +BS, soft, NT, ND
Skin: intact
Neuro: CN 2-12 intact, non-focal.
Psych: Normal mood and affect.
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
-h/o essential HTN
-COVID NEG
-Home amlodipine/lisinopril on hold
-orthostatic VS ordered but not done
-KELLIE resolved with IVFs, now off IVFs
Acute blood loss anemia on anemia of chronic disease:
-heme POS stool on admission
-h/o iron deficiency anemia, B12 deficiency
-transfuse 1U pRBCs
-Continue B12 supplement
-cont PPI
-GI and heme following
-case discussed with Dr. Marin, nothing further to offer from GI perspective and pt is hospice appropriate from Dr. Marin's perspective in light of cirrhosis and advanced age.
Pyuria:
-suspect pt with acute metabolic encephalopathy due to UTI (POA)
-UCx prelim POS, cont Rocephin
Pancytopenia:
-transfuse 1U plts and 1U pRBCs
-Heme following
Other problems:
Chronic venous stasis dermatitis
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
Chronic shuffling gait/chronic essential hand tremors
Chronic hyponatremia, trend
Hypothyroidism: Continue Synthroid
Chronic transaminitis
h/o cirrhosis
DNR/SCDs
RN updated.
Extremely poor prognosis.
Pt's updated extensively over the phone on 07/15/23.
Total time spent on today's encounter was 52 minutes which included time spent in counseling the patient/family regarding diagnosis and treatment plan as listed above, goals of care, and symptom management. Case was discussed with nursing staff,
specialists, and care coordinators/case management. All labs and imaging personally reviewed by me. Remainder the time spent in detailed review of previous records, lab data, imaging, and other medical provider documentation.
Anticipated Discharge: > 48 hours
Subjective/Interval History
-
Date of Service: July 16, 2023
Objective Data
-
Labs:
Laboratory Results
07/16/23
05:25
WBC 1.9 L*
Hgb 7.1 L
Hct 20.4 L*
Plt Count 18 L* D
Sodium 132 L
Potassium 4.3
Chloride 104
Carbon Dioxide 23
BUN 24 H
Creatinine 1.0
Glucose 77
Calcium 8.2 L
Total Bilirubin 0.9
AST 36
ALT 19
Alkaline Phosphatase 79
Vital Signs:
Vital Signs
Temp Pulse Resp BP Pulse Ox
97.7 F 96 18 142/71 99
07/16/23 08:00 07/16/23 08:00 07/16/23 08:00 07/16/23 08:00 07/16/23 08:00
I&O
07/15/23 07/16/23 07/17/23
06:59 06:59 06:59
Intake Total 2029
Output Total 300 / 300
Balance -300 / -300 2029
--- NOTE | 2023-07-16 11:28 | W.PN.ONC2 ---
Today's Communication / Plan
-
- 1 unit plts for count < 20K with suspected ongoing GIB, continue to monitor CBC, transfuse for hgb < 7.0 g/dl
Impression
Impression
Acute change in mental status
Dementia
Pancytopenia
Anemia of chronic disease
Hypotension
Chronic venous stasis
Chronic hyponatremia
Hx cirrhosis, Hep C
Plan
Plan
s/p 1 unit of pRBCs, plts yesterday with post-trx hgb 7.8 g/dl from 6.9 g/dl however drop to 7.1 g/dl today concerning for ongoing losses. PLts down to 18K, ordered additional unit of plts. consider repeat pRBCs today vs tomorrow depending on
ongoing trend. Hemodynamically stable.
retic elevated in setting of GIB, hapto pending but low suspicion for hemolysis. low normal iron stores and she may benefit from IV iron once hgb stable to assist in RBC recovery.
CBC w/ diff daily
GI following, no plan for endoscopic exam at this time.
Supportive care
Falls precautions
We will follow.
Subjective/Objective
Chief Complaint
pancytopenia related to cirrhosis with acute on chronic anemia due to GI losses
Subjective
Ghislaine has no specific complaints today, pleasantly demented. Denies obvious rectal bleeding, abdominal pain, lightheadedness.
Vital Signs:
Vital Signs
Temp Pulse Resp BP Pulse Ox
97.7 F 96 18 142/71 99
07/16/23 08:00 07/16/23 08:00 07/16/23 08:00 07/16/23 08:00 07/16/23 08:00
Lab Results:
Laboratory Data
WBC 1.9 10^3/uL (4.8-10.8) L* 07/16/23 05:25
Hgb 7.1 g/dL (12.0-16.0) L 07/16/23 05:25
Plt Count 18 10^3/uL (130-400) L* D 07/16/23 05:25
PT 16.5 Sec (11.4-14.6) H 07/14/23 19:54
INR 1.33 07/14/23 19:54
APTT 64.7 Sec (23.4-35.0) H 07/14/23 19:54
eGFR 54.87 07/16/23 05:25
Physical Exam
HEENT: No Jaundice
Cardiology: Normal Sinus Rhythm; No Murmur
Pulmonary: Clear
GI: Soft; No Distended
Extremities: Edema (trace to 1+)
Neuro: Non Focal
Review of Systems
Review of Systems
Constitutional: Denies Fever
Respiratory: Denies Dyspnea
Neurological: Denies Headache
Orders
Orders
Orders From Last 24 Hours
07/16/23 09:29
* Blood Bank Products Routine
--- NOTE | 2023-07-16 14:26 | PTOTSP ---
ST Dysphagia Evaluation
Oropharyngeal function appears grossly intact at the bedside
Pt received awake/alert sitting upright in bed at the bedside. Spouse and 2 other family members were present. Self fed with R-hand tremors noted benefits from min tactile assist. Regular solids demo grossly functional mastication and min-no oral
residuals post swallow. Thin liquids by straw sip swallow appears prompt. No overt s/sx of aspiration observed.
Recommend
1. Regular Solids / Thin liquids
2. Aspiration precautions and meal set up and feeding assist as needed
3. Meds whole/single with sips of water
4. No further acute PRODUCT MARKETING DIRECTOR needs. PRODUCT MARKETING DIRECTOR signing off please reconsult as needed.
[2023-07-16] MEDS: EXELON PATCH 4.59999999999999964 MG TRANSDERM (18:05)
[2023-07-16] MEDS: ROCEPHIN 1000 MG IV (22:22)
[2023-07-16] MEDS: STERILE WATER FOR INJECTION 10 ML IV (22:22)
[2023-07-17] VITALS (8 sets, daily range): BP systolic 135–154; BP diastolic 61–89; PULSE 84; O2SAT 100; BMI 24.2
--- NOTE | 2023-07-17 03:36 | PTCARENOTE ---
RN went in because pt was calling for help. RN found pt's IV laying on the bed with the tegaderm still in tact. IV team called and notified and they will be coming to place a new line as soon as they can.
[2023-07-17] MEDS: SYNTHROID 75 MCG PO (06:25)
[2023-07-17 07:03] LABS: % Basophils 0.7 % (0-2); % Eosinophils 1.1 % (0-6); % Immature Granulocytes 0.7 % (0-0.5); % Lymphocytes 7.4 % (20.5-51.1); % Monocytes 9.9 % (1.7-9.3); % Neutrophils 80.2 % (42.2-75.2); Absolute Lymphocytes 0.2 10^3/uL (1.2-3.4); Absolute Monocytes 0.3 10^3/uL (0.1-0.6); Absolute Neutrophils 2.3 10^3/uL (1.4-6.5); Mean Corp Hgb Conc. 36.7 g/dL (33.0-37.0); Mean Corpuscular Hgb 33.2 pg (27.0-31.0); Mean Corpuscular Volume 90.6 fL (81.0-99.0); Mean Platelet Volume 10.7 fL (7.4-10.4); Nucleated Red Blood Cells % 3.2 %; Red Blood Cell Count 2.65 10^6/uL (4.20-5.40); Red Cell Dist. Width 16.4 % (11.5-14.5); White Blood Cell Count 2.8 10^3/uL (4.8-10.8)
[2023-07-17 07:30] LABS: ALT (SGPT) 20 U/L (0-35); AST (SGOT) 40 U/L (14-36); Albumin 2.5 g/dl (3.5-5.0); Alkaline Phosphatase 85 U/L (38-126); Blood Urea Nitrogen 23 mg/dl (7-17); Calcium 8.6 mg/dl (8.4-10.2); Carbon Dioxide 22 mmol/L (22-30); Chloride 102 mmol/L (98-107); Estimated Creatinine Clearance 37 ml/min; Glucose 74 mg/dl (70-99); Potassium 4.1 mmol/L (3.5-5.1); Sodium 129 mmol/L (135-145); Total Bilirubin 1.1 mg/dl (0.2-1.3); Total Protein 5.9 g/dl (6.3-8.2); eGFR > 60.00
[2023-07-17 07:32] LABS: Hemoglobin 8.8 g/dL (12.0-16.0)
[2023-07-17 07:43] LABS: Platelet Count 23 10^3/uL (130-400)
[2023-07-17] MEDS: NAMENDA 5 MG PO ×2 (08:37→20:31)
[2023-07-17] MEDS: VITAMIN B-12 500 MCG PO (08:37)
[2023-07-17] MEDS: FOLVITE 1 MG PO (08:38)
[2023-07-17] MEDS: PRED FORTE 1% EYE DROPS 1 DROP LEFT EYE (08:38)
[2023-07-17] MEDS: PROTONIX IV 40 MG IV ×2 (08:38→20:32)
[2023-07-17] MEDS: NSS (PRESERVATIVE FREE) 10 ML IV ×2 (08:39→20:32)
--- NOTE | 2023-07-17 11:49 | W.PN.HOSP.TC ---
Today's Communication/Plan
-
see bold
Assessment / Plan
Assessment / Plan
Gen: NAD, AAOx1, appears chronically ill
Eyes: EOMI, PERRLA, no scleral icterus.
Neck: supple.
CV: Continues to remain RRR, +S1/S2, no m/r/g.
Resp: Continues to remain CTAB, no rales, wheezes, or rhonchi.
Abd: Continues to remain +BS, soft, NT, ND
Skin: intact
Neuro: CN 2-12 intact, non-focal.
Psych: Normal mood and affect.
07/15/23 04:41 Urine Urine Culture - Preliminary
Enterococcus species
Lactobacillus species
07/14/23 20:11 Urine Urine Culture - Final
07/15/23 00:40 Nose MRSA Screen - Final
No Methicillin Resistant Staphylococcus aureus isolated.
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
-h/o essential HTN
-COVID NEG
-Home amlodipine/lisinopril on hold
-orthostatic VS ordered but not done
-KELLIE resolved with IVFs, now off IVFs
Acute blood loss anemia on anemia of chronic disease:
-heme POS stool on admission
-h/o iron deficiency anemia, B12 deficiency
-s/p 2U pRBCs
-Continue B12 supplement
-cont PPI
-GI and heme saw in c/s
-case discussed with Dr. Marin, nothing further to offer from GI perspective and pt is hospice appropriate from Dr. Marin's perspective in light of cirrhosis and advanced age.
Pyuria:
-UCx with 10,000 CFU Enterococcus and lactobacillus. This does not qualify as an acute urinary tract infection. Patient has been afebrile throughout hospitalization. Current cause of acute metabolic encephalopathy is not clear at this time.
-Stop antibiotics at this time as risk greatly outweighs benefit.
Pancytopenia:
-transfuse plts again today
-Heme following
Other problems:
Chronic venous stasis dermatitis
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
Chronic shuffling gait/chronic essential hand tremors
Chronic hyponatremia, trend
Hypothyroidism: Continue Synthroid
Chronic transaminitis
h/o cirrhosis
DNR/SCDs
RN updated.
Extremely poor prognosis. Patient is hospice appropriate.
Anticipated Discharge: 24 - 48 hours
Subjective/Interval History
-
Date of Service: July 17, 2023
Denies chest pain, shortness of breath, abdominal pain.
Objective Data
-
Labs:
Laboratory Results
07/17/23
05:54
WBC 2.8 L
Hgb 8.8 L D
Hct 24.0 L
Plt Count 23 L* D
Sodium 129 L
Potassium 4.1
Chloride 102
Carbon Dioxide 22
BUN 23 H
Creatinine 0.9
Glucose 74
Calcium 8.6
Total Bilirubin 1.1
AST 40 H
ALT 20
Alkaline Phosphatase 85
Vital Signs:
Vital Signs
Temp Pulse Resp BP Pulse Ox
98.2 F 90 18 143/73 99
07/17/23 07:40 07/17/23 07:40 07/17/23 07:40 07/17/23 07:40 07/17/23 07:40
I&O
07/16/23 07/17/23 07/18/23
06:59 06:59 06:59
Intake Total 2029
Balance 2029
--- NOTE | 2023-07-17 15:07 | W.PN.GI.CBS2 ---
Today's Communication / Plan
-
GI will sign off again
Assessment / Plan
-
The patient is an 88-year-old female with a past medical history significant for chronic thrombocytopenia, chronic iron deficiency anemia, vitamin B12 deficiency, ? Cirrhosis secondary to hepatitis C, mild dementia/short-term memory impairment
secondary to history of herpes zoster encephalitis, GERD, hypothyroidism, hypertension, chronic hyponatremia, hyperlipidemia, mild aortic and mitral valve stenosis, who presented to the emergency room with increased confusion after sustaining a
fall. We are being asked to evaluate for her anemia. Presentation as noted above with increased confusion, dysarthria, and fall. Recent admission for cellulitis in May. Questionable history of cirrhosis? (negative HCV) which was seen on
ultrasound imaging in 2018 but no outpatient workup seen for this seen in [facility]. With significant pancytopenia, hematology is following. Noted to have a brown heme positive stools with a hemoglobin of 7.6, dropped to 6.9 this morning. Platelets
severely low at 27,000. Transfusion initiated with platelets and packed red blood cells. Currently with no signs of active bleeding. She is awake but confused.
Problem list:
# Altered mental status
-- seems to be improving; urine culture positive and pending - may have a reversible component to her AMS
-- her ammonia was normal
-CT of the head unrevealing. Encephalopathy possibly secondary to cirrhosis versus infectious etiology versus worsening dementia. She does have a history of short-term memory impairment after having herpes zoster's encephalitis in 2018.
-Ammonia level done which was normal. Prior imaging from 2018 suggesting cirrhosis but unclear as to further workup with no GI evaluation in our system outpatient.
--- Not enough ascites on the ultrasound for paracentesis
#2: Heme positive brown stool, normocytic anemia/pancytopenia -in the setting of a platelet count of 18
-Possibly secondary to slow GI loss such as portal hypertensive gastropathy with history of reported cirrhosis versus peptic ulcer disease versus AVM versus other
-Also with history of chronic iron deficiency anemia and B12 deficiency
-Currently with no overt signs of GI bleeding
-Trend H&H and transfuse to keep hemoglobin greater than 7, hematology following
-- this is supportive care in the setting of pancytopenia and no overt bleeding with brown stool - her plts are 18
-Continue once daily PPI
--ok for diet
-normal iron, ferritin, B12, folate levels
#3: Pancytopenia
-Likely multifactorial causes underlying cirrhosis? versus infection versus other
-Hematology following
-Monitor platelets and transfusion as per hematology
-- Possibly exacerbated by infectious source
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
-- HCV AB is negative
--- I discussed this with her at the bedside. He said 30 years ago she was told she likely had cirrhosis and was offered a biopsy but they refused at that time
-- -Based on her previous and current ultrasound she is likely cirrhotic given small volume ascites, severely nodular liver and mild splenomegaly. No thrombosis on imaging.
-- regardless, she is not a candidate for transplant and would be hospice appropriate
-- I discussed with her the idea of at least palliative care which she was not aware of. He will discuss it with Dr. Stanley, his PCP
--- Will sign off, please call us if she has clinically significant bleeding; discussed with Dr. Urena; transfusions per hematology and primary team
Other acute medical problems:
-KELLIE
-acute/chronic hyponatremia
-fall
Other pertinent medical history:
-GERD
-Hypothyroidism
-Hypertension
-Dementia with short-term memory loss
-History of herpes zoster's encephalitis 2017
-Hyperlipidemia
-Mild aortic and mitral valve stenosis
Total Time Spent with Patient (in minutes): 35
Subjective
Subjective
Date of Service: July 17, 2023
Patient denies any overt bleeding. Her is at the bedside.
Objective
Data Reviewed
Laboratory Data:
Laboratory Results
07/17/23 05:54
07/17/23 05:54
Laboratory Results
PT 16.5 Sec (11.4-14.6) H 07/14/23 19:54
INR 1.33 07/14/23 19:54
APTT 64.7 Sec (23.4-35.0) H 07/14/23 19:54
Total Bilirubin 1.1 mg/dl (0.2-1.3) 07/17/23 05:54
AST 40 U/L (14-36) H 07/17/23 05:54
ALT 20 U/L (0-35) 07/17/23 05:54
Alkaline Phosphatase 85 U/L (38-126) 07/17/23 05:54
Vital Signs and I&O:
Vital Signs
Temp Pulse Resp BP Pulse Ox
98.2 F 90 18 143/73 99
07/17/23 07:40 07/17/23 07:40 07/17/23 07:40 07/17/23 07:40 07/17/23 07:40
I&O
07/16/23 07/17/23 07/18/23
06:59 06:59 06:59
Intake Total 2029
Balance 2029
Physical Exam
Physical Exam
HEENT: Anicteric
GI: Soft, Non Distended and Non Tender
Extremities: Edema
Neuro: Other (Oriented to person)
[2023-07-17 19:40] LABS: Haptoglobin 52 mg/dL (30-200)
[2023-07-17] MEDS: EXELON PATCH 4.59999999999999964 MG TRANSDERM (20:32)
[2023-07-18 06:00] VITALS: BMI 23.7
[2023-07-18] MEDS: SYNTHROID 75 MCG PO (06:16)
[2023-07-18 07:00] VITALS: BP 157/83
[2023-07-18 07:38] LABS: % Eosinophils 2.4 % (0-6); % Immature Granulocytes 0.3 % (0-0.5); % Lymphocytes 13.4 % (20.5-51.1); % Monocytes 10.3 % (1.7-9.3); % Neutrophils 72.6 % (42.2-75.2); Absolute Eosinophils 0.1 10^3/uL (0-0.7); Absolute Lymphocytes 0.4 10^3/uL (1.2-3.4); Absolute Monocytes 0.3 10^3/uL (0.1-0.6); Absolute Neutrophils 2.1 10^3/uL (1.4-6.5); Hematocrit 24.1 % (37.0-47.0); Hemoglobin 8.6 g/dL (12.0-16.0); Mean Corp Hgb Conc. 35.7 g/dL (33.0-37.0); Mean Corpuscular Hgb 32.7 pg (27.0-31.0); Mean Corpuscular Volume 91.6 fL (81.0-99.0); Mean Platelet Volume 8.9 fL (7.4-10.4); Nucleated Red Blood Cells % 0 %; Platelet Count 30 10^3/uL (130-400); Red Blood Cell Count 2.63 10^6/uL (4.20-5.40); White Blood Cell Count 2.9 10^3/uL (4.8-10.8)
[2023-07-18 07:50] LABS: ALT (SGPT) 21 U/L (0-35); AST (SGOT) 41 U/L (14-36); Albumin 2.7 g/dl (3.5-5.0); Alkaline Phosphatase 88 U/L (38-126); Blood Urea Nitrogen 19 mg/dl (7-17); Calcium 8.5 mg/dl (8.4-10.2); Carbon Dioxide 24 mmol/L (22-30); Chloride 99 mmol/L (98-107); Estimated Creatinine Clearance 33 ml/min; Glucose 86 mg/dl (70-99); Potassium 4.1 mmol/L (3.5-5.1); Sodium 130 mmol/L (135-145); Total Bilirubin 1.4 mg/dl (0.2-1.3); Total Protein 6.1 g/dl (6.3-8.2); eGFR 54.87
[2023-07-18] MEDS: VITAMIN B-12 500 MCG PO (10:03)
[2023-07-18] MEDS: PRED FORTE 1% EYE DROPS 1 DROP LEFT EYE (10:03)
[2023-07-18] MEDS: NAMENDA 5 MG PO ×2 (10:06→20:01)
[2023-07-18] MEDS: FOLVITE 1 MG PO (10:06)
[2023-07-18] MEDS: NSS (PRESERVATIVE FREE) 10 ML IV ×2 (10:07→20:01)
[2023-07-18] MEDS: PROTONIX IV 40 MG IV ×2 (10:07→20:01)
[2023-07-18 15:00] VITALS: BP 161/80
--- NOTE | 2023-07-18 15:21 | CM ---
Chart reviewed and plan is to home with [facility].
Plan; Home with [facility].
[2023-07-18 15:48] VITALS: BP 104/82; PULSE 75
--- NOTE | 2023-07-18 16:17 | W.PN.HOSP.TC ---
Today's Communication/Plan
-
Discharge planning
Will talk to tomorrow.
Restart Lisinopril
Assessment / Plan
Assessment / Plan
CVS: S1-S2 normal
Chest: CTA B/L
Abdomen: Soft, NT / Bowel sounds present
Extremities: B/L LE edema, normal pulses
SOCIAL AND HUMAN SERVICES ASSISTANT: Confused,Non focal exam
07/15/23 04:41 Urine Urine Culture - Preliminary
Enterococcus species
Lactobacillus species
07/14/23 20:11 Urine Urine Culture - Final
07/15/23 00:40 Nose MRSA Screen - Final
No Methicillin Resistant Staphylococcus aureus isolated.
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
-H/O essential HTN
-COVID NEG
-Home amlodipine/lisinopril on hold
-Orthostatic VS ordered but not done
-KELLIE resolved with IVFs, now off IVFs
#TME -Improving encephalopathy secondary to cirrhosis versus ammonia level normal
Dementia and also related with hospital stay.
She does have a history of short-term memory impairment after having herpes zoster's encephalitis in 2018.
#Acute blood loss anemia on anemia of chronic disease:
-Heme POS stool on admission
-H/O iron deficiency anemia, B12 deficiency
-s/p 2U pRBCs
-Continue B12 supplement
-Cont PPI
-GI and heme saw in c/s
-Case discussed with Dr. Marin, nothing further to offer from GI perspective and pt is hospice appropriate from Dr. Marin's perspective in light of cirrhosis and advanced age.
#Cirrhosis of unclear etiology-reported
#Pyuria:
-UCx with 10,000 CFU Enterococcus and lactobacillus. This does not qualify as an acute urinary tract infection. Patient has been afebrile throughout hospitalization. Current cause of acute metabolic encephalopathy is not clear at this time.
-Stop antibiotics at this time as risk greatly outweighs benefit.
#Pancytopenia: Multifactorial likely also secondary to cirrhosis
-Platelets stable after discharge
-Heme following
#Hypertension-hold amlodipine, lisinopril restarted
#Dementia-on memantine
#Chronic venous stasis dermatitis
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
#Chronic shuffling gait/chronic essential hand tremors
#Chronic hyponatremia, trend
#Hypothyroidism: Continue Synthroid
#History of herpes zoster's encephalitis 2017
#Chronic transaminitis
#h/o cirrhosis-hepatitis C antibody negative
#Hypoalbuminemia
#DNR
#DVT Prophylaxis-SCDs
RN updated.
D/W GI- Hospice appropriate.
Anticipated Discharge: Within 24 hours
Subjective/Interval History
-
Date of Service: July 18, 2023
Objective Data
-
Labs:
Laboratory Results
07/18/23
06:55
WBC 2.9 L
Hgb 8.6 L
Hct 24.1 L
Plt Count 30 L D
Sodium 130 L
Potassium 4.1
Chloride 99
Carbon Dioxide 24
BUN 19 H
Creatinine 1.0
Glucose 86
Calcium 8.5
Total Bilirubin 1.4 H
AST 41 H
ALT 21
Alkaline Phosphatase 88
Vital Signs:
Vital Signs
Temp Pulse Resp BP Pulse Ox
98.0 F 88 18 161/80 97
07/18/23 15:00 07/18/23 15:00 07/18/23 15:00 07/18/23 15:00 07/18/23 15:00
I&O
07/17/23 07/18/23 07/19/23
06:59 06:59 06:59
Intake Total 2 / 2302 1149 / 1149
Balance 2302 / 2302 1149 / 1149
[2023-07-18] MEDS: LASIX 20 MG PO (17:11)
[2023-07-18] MEDS: EXELON PATCH 4.59999999999999964 MG TRANSDERM (17:12)
[2023-07-18] MEDS: ZESTRIL 20 MG PO (20:59)
[2023-07-18 23:00] VITALS: BP 164/82
[2023-07-19 04:25] VITALS: BP 135/84; BP 152/87; BP 156/83; PULSE 106; PULSE 107; PULSE 111
[2023-07-19] MEDS: SYNTHROID 75 MCG PO (05:12)
[2023-07-19 06:00] VITALS: BMI 22.7
[2023-07-19 07:00] VITALS: BP 157/80
[2023-07-19] MEDS: NAMENDA 5 MG PO (09:00)
[2023-07-19] MEDS: NSS (PRESERVATIVE FREE) 10 ML IV (09:00)
[2023-07-19] MEDS: FOLVITE 1 MG PO (09:00)
[2023-07-19] MEDS: VITAMIN B-12 500 MCG PO (09:01)
[2023-07-19] MEDS: PROTONIX IV 40 MG IV (09:01)
[2023-07-19] MEDS: PRED FORTE 1% EYE DROPS 1 DROP LEFT EYE (09:02)
[2023-07-19 10:00] VITALS: BP 113/60; BP 119/72; BP 98/58; PULSE 104; PULSE 106; PULSE 109
--- NOTE | 2023-07-19 10:01 | CM ---
Home with spouse and [facility].
Plan; Home with spouse and [facility].
--- NOTE | 2023-07-19 10:44 | CM ---
Addendum entered by Leela Henry 07/19/23 14:31:
Referral also sent to [facility].
Original Note:
Chart reviewed and patient to return to home with spouse when stable.
Plan; Home with spouse and [facility].
--- NOTE | 2023-07-19 14:04 | W.PN.HOSP.TC ---
Addendum entered and electronically signed by Nikole Foss MD 07/19/23 16:34:
ECHO noted
Discussed with pt and
Went back to see
they want her to go home
Discharge
Discharge time 38 min
Addendum entered and electronically signed by Nikole Foss MD 07/19/23 14:54:
Appreciate surgical opinion.
No interventions.
states the patient has had lower extremity edema for a long time. Will completely stop Norvasc
Also get an echo
If stable discharge home
Original Note:
Today's Communication/Plan
-
surgical opinion about the hematoma lateral thigh
Assessment / Plan
Assessment / Plan
CVS: S1-S2 normal
Chest: CTA B/L
Abdomen: Soft, NT / Bowel sounds present
Extremities: B/L LE edema, normal pulses
ecchymosis, hematoma left lateral thigh , no pain with ambulating and standing.
LEAD ARCHITECT: Confused,Non focal exam
07/15/23 04:41 Urine Urine Culture - Preliminary
Enterococcus species
Lactobacillus species
07/14/23 20:11 Urine Urine Culture - Final
07/15/23 00:40 Nose MRSA Screen - Final
No Methicillin Resistant Staphylococcus aureus isolated.
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
-H/O essential HTN
-COVID NEG
-Home amlodipine
-KELLIE resolved with IVFs, now off IVFs
#TME -Improving encephalopathy secondary to cirrhosis versus ammonia level normal
Dementia and also related with hospital stay.
She does have a history of short-term memory impairment after having herpes zoster's encephalitis in 2018.
#Acute blood loss anemia on anemia of chronic disease:
-Acute blood loss anemia- left thigh area from trauma (Fall )
-Heme POS stool on admission
-H/O iron deficiency anemia, B12 deficiency
-s/p 2U pRBCs
-Continue B12 supplement
-Cont PPI
-GI and heme saw in c/s
-Case discussed with Dr. Marin, nothing further to offer from GI perspective and pt is hospice appropriate from Dr. Marin's perspective in light of cirrhosis and advanced age.
#Cirrhosis of unclear etiology-reported
#Pyuria:
-UCx with 10,000 CFU Enterococcus and lactobacillus. This does not qualify as an acute urinary tract infection. Patient has been afebrile throughout hospitalization. Current cause of acute metabolic encephalopathy is not clear at this time.
-Stopped antibiotics at this time as risk greatly outweighs benefit.
#Pancytopenia: Multifactorial likely also secondary to cirrhosis
-Platelets stable after discharge
-Heme following
#Hypertension-hold amlodipine, lisinopril restarted
#Dementia-on memantine
#Chronic venous stasis dermatitis
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
#Chronic shuffling gait/chronic essential hand tremors
#Chronic hyponatremia, trend
#Hypothyroidism: Continue Synthroid
#History of herpes zoster's encephalitis 2017
#Chronic transaminitis
#h/o cirrhosis-hepatitis C antibody negative
Per , patient was advised to get workup for cirrhosis including liver biopsy 30 years ago. 1 doctor told him 'she will bleed to ' therefore they did not want undergo any biopsy
#Hypoalbuminemia
#DNR
#DVT Prophylaxis-SCDs
RN updated.
D/W GI- Hospice appropriate.
Has been wants to start with palliative care.
Anticipated Discharge: Within 24 hours
Subjective/Interval History
-
Date of Service: July 19, 2023
Objective Data
-
Vital Signs:
Vital Signs
Temp Pulse Resp BP Pulse Ox
98.0 F 92 18 157/80 99
07/19/23 07:00 07/19/23 07:00 07/19/23 07:00 07/19/23 07:00 07/19/23 07:00
I&O
07/18/23 07/19/23 07/20/23
06:59 06:59 06:59
Intake Total 1149 / 1149 1020 / 1020 240 / 240
Output Total 300 / 300 300 / 300
Balance 1149 / 1149 720 / 720 -60 / -60
--- NOTE | 2023-07-19 14:48 | CON.GS ---
Consultation
-
Date/Time Consultation Requested: 07/19/2023 1:30 PM
Date/Time Consultation Performed: 08/17/2023 2:15 PM
Requesting Provider: Linda
Performing Provider: Azael
Reason for Consultation: Left hip hematoma
Medical History
-
Chief Complaint: Fall, change in mental status
History of Present Illness:
Patient is an 88-year-old female who was brought into the emergency department by her on the evening of 07/14/2023 to the [facility] emergency department secondary to difficulty speaking. She was admitted to the hospitalist service
with hypotension and acute kidney injury, acute blood loss anemia with heme positive but brown-colored stool. It was recently noted however that she had significant ecchymosis along the left hip and gluteal area today.
Now in retrospect the patient's states that earlier on the date of her admission last while he was getting food out of the refrigerator he heard his fall from standing behind him. She landed on her left hip. She has continued
discomfort along the left hip area but her pain is controlled.
Past Medical History
Past Medical History: Other (CKD stage III, hypertension, dementia with short-term memory impairment, chronic anemia, thrombocytopenia, cirrhosis)
Past Surgical History: Reviewed & Noncontributory
Social History
Personal:
Living: With Family
Family History
Family History: Reviewed & Not Pertinent
Allergies / Home Medications
Allergy/AdvReac Type Severity Reaction Status Date / Time
No Known Allergies Allergy Verified 06/02/23 08:43
Medication Instructions Recorded Confirmed Type
levothyroxine 75 mcg tablet 75 mcg PO DAILY@07 Thyroid 08/15/08 07/14/23 History
(Synthroid)
lisinopril 40 mg tablet 40 mg PO HS blood pressure 08/15/08 07/14/23 History
amlodipine 2.5 mg tablet 2.5 mg PO DAILY@2000 blood pressure 06/02/23 07/14/23 History
cyanocobalamin (vitamin B-12) 500 500 mcg PO DAILY Supplement 06/02/23 07/14/23 History
mcg tablet
folic acid 1 mg tablet 1 mg PO DAILY Supplement 06/02/23 07/14/23 History
memantine 10 mg tablet 10 mg PO BID Neurological Condition 06/02/23 07/14/23 History
prednisolone acetate (PF) 1 % eye 1 drp LEFT EYE DAILY Eye Condition 06/02/23 07/14/23 History
drops,suspension
rivastigmine 4.6 mg/24 hour 1 patch transdermal DAILY@1900 06/02/23 07/14/23 History
transdermal patch Neurological Condition
Review of Systems
-
A 10 point review of systems was completed, and was negative except as per HPI.
Physical Exam
Vital Signs
Temp Pulse Resp BP Pulse Ox
98.0 F 92 18 157/80 99
07/19/23 07:00 07/19/23 07:00 07/19/23 07:00 07/19/23 07:00 07/19/23 07:00
07/18/23 07/19/23 07/20/23
06:59 06:59 06:59
Actual Weight 60.555 kg 58.014 kg
Body Mass Index (BMI) 22.7
Lab Results
07/18/23 06:55
07/18/23 06:55
WBC 2.9 10^3/uL (4.8-10.8) L 07/18/23 06:55
Hgb 8.6 g/dL (12.0-16.0) L 07/18/23 06:55
Hct 24.1 % (37.0-47.0) L 07/18/23 06:55
Plt Count 30 10^3/uL (130-400) L D 07/18/23 06:55
Abs Immat Gran (auto) 0.0 10^3/uL (0-0.05) 07/18/23 06:55
Neutrophils % 72.6 % (42.2-75.2) 07/18/23 06:55
Physical Exam
General: Other (Elderly, chronically ill-appearing. Sitting in chair at bedside conversing with her . Oriented to self.)
HEENT: Normocephalic, Anicteric and Moist Mucous Membranes
Respiratory: Non Labored Respirations
Cardiac: Regular Rhythm
Skin: Other (Along the left lateral hip and extending into the left gluteal region there is a large area of ecchymosis and swelling consistent with most likely a subcutaneous more than intramuscular hematoma. No skin necrosis. No warmth to touch
or erythema. Mild tenderness.)
Neuro: Awake, Alert and Oriented
Psych: Calm
Assessment / Plan
-
Assessment/plan: 88-year-old female with left hip/gluteal large hematoma, presumed to be subcutaneous more so than intramuscular based on examination, status post fall on 07/14/2023. Patient's pancytopenia was likely initial contributing to degree
of hematoma.
Left femur and hip imaging without evidence of acute fracture or dislocation from 07/14/23.
Suspect the patient's initial presentation with change in mental status, acute on chronic anemia was like related to initial bleeding from this large hematoma. She has received transfusion of 2 units of packed red blood cells which she has
responded appropriate to as well as a platelet transfusion.
Patient's hemoglobin has been stable for the last 48 hours. Platelet count is now up to 30.
On examination there is no evidence of skin ulceration or breakdown and the hematoma appears isolated to most likely a subcutaneous location. There is no superimposed infectious signs or symptoms. There is no signs of ongoing blood loss.
Recommend continuing with expectant management with falls precautions. Counseled patient's that this will take months not days or weeks to resolve but ideally we will allow the body to naturally reabsorb the hematoma slowly with time as any
intervention would certainly be of higher risk for Mrs Siegel given her medical comorbidities and frailty and at this time risks of hematoma drainage would outweigh any potential benefit.
Please call if can be of further assistance with patient care.
[2023-07-19 15:00] VITALS: BP 164/75
--- NOTE | 2023-07-19 16:40 | W.DS.TRANS ---
Addendum entered and electronically signed by Nikole Foss MD 07/19/23 18:24:
Dictation- [id number]
Original Note:
DC Summary - Environment Coordinator
-
Discharge Instructions:
Discharge Diagnosis/Procedures Dehydration, acute kidney injury, anemia, fall
with ecchymosis and hematoma left thigh, heme
positive stools, pancytopenia, hypertension,
dementia, chronic venous stasis, tremors,
chronic hyponatremia, hypothyroidism, cirrhosis
Diet 2 Gram Sodium,Restrict fluids to 48 oz
Activity As tolerated
Driving Restrictions No driving
Blood Work cbc , cmp 1 week
Other Services VN
Stop these medications: stop Amlodipine
Instructions:
Stand-Alone Forms:
Changes to Home Medications: Yes
Discharge Medications:
DC Medications w/original date entered in [facility]
levothyroxine 75 mcg tablet (Synthroid) 75 mcg PO DAILY@07 Thyroid 08/15/08
cyanocobalamin (vitamin B-12) 500 mcg tablet 500 mcg PO DAILY Supplement 06/02/23
folic acid 1 mg tablet 1 mg PO DAILY Supplement 06/02/23
prednisolone acetate (PF) 1 % eye drops,suspension 1 drp LEFT EYE DAILY Eye Condition 06/02/23
rivastigmine 4.6 mg/24 hour transdermal patch 1 patch transdermal DAILY@1900 Neurological Condition 06/02/23
lisinopril 20 mg tablet 20 mg PO BID Blood pressure #60 tabs 07/19/23
memantine 10 mg tablet 5 mg PO BID dementia #60 tabs 07/19/23
pantoprazole 40 mg tablet,delayed release (Protonix) 40 mg PO DAILY Gastrointestinal issue #60 tabs 07/19/23
Home Medication Changes
new
Protonix
dose change Lisinopril, memantine
Stopped Norvasc
Pending Results: No
--- NOTE | 2023-07-20 08:12 | VNURNOTE ---
[facility] resumption of care completed in [facility] after review of chart 07/19.
== END 2023-07-19 17:34 | disposition home health service (06) | DRG 432 ==
LOC: 4 WEST ACU 22:34
PROVIDERS: Clinical Nurse Specialist Family Health; Emergency Medicine; Nurse Practitioner Family; ADMITTING PHYSICIAN Hospitalist; ATTENDING PHYSICIAN Hospitalist; CONSULT PHYSICIAN Internal Medicine; CONSULT PHYSICIAN Surgery; EMERGENCY PHYSICIAN Emergency Medicine; FAMILY PHYSICIAN Family Medicine; OTHER PHYSICIAN Internal Medicine Hematology & Oncology
PROC: 30233R1 Transfusion of Nonautologous Platelets into Peripheral Vein, Percutaneous Approach (ICD-10-PCS; 2023-07-15)
PROC: 30233N1 Transfusion of Nonautologous Red Blood Cells into Peripheral Vein, Percutaneous Approach (ICD-10-PCS; 2023-07-15)
DX: K74.60 Unspecified cirrhosis of liver (principal); G93.41 Metabolic encephalopathy; K92.2 Gastrointestinal hemorrhage, unspecified; N39.0 Urinary tract infection, site not specified; E87.1 Hypo-osmolality and hyponatremia; N17.9 Acute kidney failure, unspecified; L03.115 Cellulitis of right lower limb; D61.818 Other pancytopenia; D62 Acute posthemorrhagic anemia; F03.B0 Unspecified dementia, moderate, without behavioral disturbance, psychotic disturbance, mood disturbance, and anxiety; I12.9 Hypertensive chronic kidney disease with stage 1 through stage 4 chronic kidney disease, or unspecified chronic kidney disease; E86.0 Dehydration; I95.9 Hypotension, unspecified; N18.32 Chronic kidney disease, stage 3b; Z11.52 Encounter for screening for COVID-19; D63.8 Anemia in other chronic diseases classified elsewhere; I87.2 Venous insufficiency (chronic) (peripheral); E03.9 Hypothyroidism, unspecified; M81.0 Age-related osteoporosis without current pathological fracture; Z66 Do not resuscitate; I87.8 Other specified disorders of veins; E53.8 Deficiency of other specified B group vitamins; K21.9 Gastro-esophageal reflux disease without esophagitis; E78.5 Hyperlipidemia, unspecified; I05.0 Rheumatic mitral stenosis; S70.02XA Contusion of left hip, initial encounter; E88.09 Other disorders of plasma-protein metabolism, not elsewhere classified
CPT/HCPCS: 51701; 70450; 73502; 73552; 76700; 80053; 81003; 81015; 82140; 82607; 82728; 82746; 82962; 83010; 83540; 83550; 83615; 84484; 85014; 85018; 85025; 85045; 85610; 85730; 86704; 86706; 86708; 86709; 86803; 86850; 86900; 86901; 86920; 87070; 87077; 87086; 87186; 87340; 87811; 93005; 93306; 93975; 97116; 97162; 97166; 99285; P9016; P9073